=== PATIENT | male | born 1960 | race Caucasian/White ===

== ENCOUNTER 2019-06-12 10:46 | Outpatient (CLI) | payer OTHER ==
--- NOTE | 2019-06-12 11:43 | RAD ---
Exam:3 views left foot HISTORY: Pain. COMPARISON: None FINDINGS: Preserved joint spaces. Lisfranc alignment is maintained. No fracture. Mild degenerative ch anges of the midfoot. IMPRESSION: Mild degenerative change of the midfoot.
== END 2019-06-12 10:47 | disposition home or self-care (01) ==
LOC: BICRAD 10:46
PROVIDERS: ATTEND Family Medicine
DX: M79.672 Pain in left foot (principal); M19.072 Primary osteoarthritis, left ankle and foot